=== PATIENT | male | born 1950 | race Caucasian/White ===

== ENCOUNTER → 2017-04-18 08:32 | Outpatient (CLI) | payer MEDICARE, OTHER, SELFPAY ==
--- NOTE | 2017-04-18 08:35 | RAD_ITS ---
STUDY: X-RAY - LEFT SHOULDER REASON FOR EXAM: Male, 67 years old. Status post shoulder replacement. TECHNIQUE: 3 view(s) of the shoulder. COMPARISON: Comparison is made with prior examination dated March 08, 2017. FINDINGS: The patient is status post left reverse shoulder replacement. There is good alignment. Normal acromioclavicular joint. Normal acromion. Normal humeral head and visualized proximal humerus. The soft tissue structures are unremarkable. Once again, there is volume loss and opacity of the left upper lobe. This is unchanged. RAD/Shoulder min 2 Views IMPRESSION: Status post left reverse shoulder replacement. There is good alignment. Stable examination. Stable changes in the left upper lobe density. Electronically Signed: Deniz Escalante MD at 11:21 EST Tel [phone], Service support ,
== END ==
PROVIDERS: Family Provider Family Medicine; PCP Family Medicine; Visit Provider Orthopaedic Surgery
DX: M25.512 Pain in left shoulder (principal)
CPT/HCPCS: 73030

== ENCOUNTER → 2017-09-10 08:45 | Outpatient (CLI) | payer MEDICARE, OTHER, SELFPAY ==
--- NOTE | 2017-09-10 08:47 | RAD_ITS ---
STUDY: X-RAY - LEFT SHOULDER REASON FOR EXAM: Male, 67 years old. Pain. TECHNIQUE: 3 view(s) of the shoulder. COMPARISON: 3 views of the left shoulder April 18, 2017. FINDINGS: Again seen are changes of prior left total shoulder arthroplasty with metal scapular/glenoid and humeral prostheses appear well seated, and in anatomic alignment. There is mild degenerative arthrosis of the acromioclavicular joint with a small amount of superior periarticular degenerative soft tissue calcification. Normal acromion. Normal humeral head and visualized proximal humerus. The soft tissue structures are unremarkable. There is stable collapse in the left lung apex and cephalad hilar retraction. RAD/Shoulder min 2 Views IMPRESSION: Stable x-ray examination of the shoulder, as described. Electronically Signed: Kamran Carbajal MD at 19:07 EDT , Service support ,
== END ==
PROVIDERS: Family Provider Family Medicine; PCP Family Medicine; Visit Provider Orthopaedic Surgery
DX: M25.512 Pain in left shoulder (principal)
CPT/HCPCS: 73030

== ENCOUNTER → 2018-11-27 09:50 | Outpatient (CLI) | payer MEDICARE, OTHER, SELFPAY ==
[2018-08-22 09:16] VITALS: BMI 26.9
[2018-11-27 10:42] LABS: Absolute Lymphocyte Count 0.61 X10^3/uL (0.83-4.51); Absolute Neutrophil Count 3.6 X10^3/uL (2.0-7.7); Basophil# 0.01 X10^3/uL; Basophil% 0.2 % (0-1); Eosinophil# 0.06 X10^3/uL; Eosinophils% 1.2 % (0-5); Hematocrit 43.2 % (40-54); Lymphocyte # 0.61 X10^3/ul (4.0); Lymphocyte % 12.4 % (19-41); Mean Corp Hgb Conc 34.7 g/dL (32-36); Mean Corpuscular Hgb 32.5 pg (27.0-32.0); Mean Corpuscular Volume 93.7 fL (80-94); Mean Platelet Vol. 9.2 fl (6.2-12.0); Monocyte# 0.65 X10^3/uL; Monocyte% 13.3 % (0-10); NRBC Flagged by Analyzer 0 % (0-5); Neutrophil # 3.56 X10^3/uL (2.7-7.7); Neutrophil % 72.7 % (47-70); Platelet Count 233 K/mm3 (150-450); RBC Distribution Width CV 12.3 % (11.6-14.6); RBC Distribution Width SD 42.5 fl (35.1-43.9); Red Blood Count 4.61 M/mm3 (4.6-6.2); White Blood Count 4.9 K/mm3 (4.4-11.0)
[2018-11-27 11:05] LABS: Cholesterol 169 mg/dL (200); High Density Lipoprotein 87 mg/dL; Iron 97 ug/dL (65-175); PSA,Total - Annual Screen 2.49 ng/mL (0.00-4.00); Triglycerides 44 mg/dL; Very Low Density Lipoprotein 9 mg/dL (5-40)
== END ==
PROVIDERS: Family Provider Family Medicine; PCP Family Medicine; Referring Provider Family Medicine; Visit Provider Family Medicine
DX: Z00.00 Encounter for general adult medical examination without abnormal findings (principal); I10 Essential (primary) hypertension; D50.9 Iron deficiency anemia, unspecified; Z12.5 Encounter for screening for malignant neoplasm of prostate
CPT/HCPCS: 36415; 80061; 83540; 84153; 85025; G0103

== ENCOUNTER 2019-04-16 11:09 | Emergency (ER) | payer MEDICARE, OTHER, SELFPAY ==
[2018-08-22 09:16] VITALS: BMI 26.9
[2019-04-16 11:10] VITALS: BP 131/109; PULSE 85; RESP 14; TEMP 36.6; O2SAT 99; BMI 26.4
[2019-04-16 12:20] VITALS: BP 122/80; PULSE 79; RESP 14; O2SAT 96
--- NOTE | 2019-04-16 12:22 | CT_ITS ---
STUDY: CT ABDOMEN AND PELVIS WITH CONTRAST REASON FOR EXAM: Male, 69 years old. LLQ PAIN X2 DAYS LEFT FLANK PAIN X2 WKS-AFTER FALL -- HX-COLON and amp; LUNG CA W/ RADIATION and amp; CHEMO -- SURG-3 FT BOWEL REMOVED RADIATION DOSAGE (If Supplied By Facility): CTDIvol = ( 14.05 ) mGy, DLP = ( 974.51 ) mGycm TECHNIQUE: Transaxial images were obtained from the dome of the diaphragm to the symphysis pubis without oral contrast. IV 100mL Isovue-300 was administered. Sagittal and coronal images were reconstructed. Individualized dose optimization techniques were used for this CT. COMPARISON: Comparison is made with prior examination dated February 16, 2016. FINDINGS: Small left pleural effusion with minimal left basilar atelectasis. Nondisplaced posterior rib fractures most likely of the left ninth and 10th ribs. Also evidence of a nondisplaced fracture of the anterior lateral aspect of the left eighth and ninth ribs. The visualized portions of the heart are within normal limits. Normal liver. Normal gallbladder and extrahepatic biliary system. Normal spleen. Normal pancreas. Normal bilateral adrenal glands. Normal right kidney. Normal left kidney. Normal visualized stomach. Anastomosis seen in the mid jejunal level. Normal colon. The appendix is visualized and appears normal. Small lymph nodes are seen in the mesentery in the right lower quadrant suggestive of mesenteric adenitis. There is scattered atherosclerotic calcification of the abdominal aorta, without a demonstrated aneurysm. Normal inferior vena cava. There is borderline retroperitoneal lymphadenopathy with enlarged nodes no greater than 10mm in the short axis diameter. Normal urinary bladder. There is enlargement of the prostate gland. The prostate measures 5.8 size by 3.7 cm. Central calcifications are seen. There is a small umbilical hernia containing fat. Degenerative changes at the L5-S1 level with spondylosis of the pars interarticularis and minimal anterior listhesis. CT/Abdomen/Pelvis W IV Cont ONLY IMPRESSION: New small left pleural effusion with minimal atelectasis at the left lung base. Left rib fractures. Electronically Signed: Deniz Escalante, at 13:26 EST , Service support ,
--- NOTE | 2019-04-16 12:29 | ED.DCSUM_ITS ---
History of Present Illness Chief Complaint: GI Bleed Narrative: Patient presents for evaluation of right ankle. He tells me that 2 weeks ago he sustained a fall injuring his left lower ribs. He states he had a large area of contusion in his flank. 3 days ago he began to have bright red blood per the rectum. He tells me that he is not really having any stools. Between midnight and 5:00 he had multiple episodes. Last episode of blood was about 3 hours ago. He notes some lower left abdominal pain. He has had an increase in the pain from his ribs that he had had previous improvement from. He denies any fevers. He tells me on his last colonoscopy he had a couple polyps removed. 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 He cannot tell me what his final diagnosis was. From reading his last oncology note last summer patient has a history of metastatic melanoma. Intussusception with small bowel partial resection. Past Medical History - Allergies and Home Meds Allergies/Adverse Reactions: Allergies paclitaxel [From Taxol] Allergy (Verified 08/22/18 09:16) Anaphylaxis Primary Care Physician: Renny Roldan MD [Primary Care Provider] - Surgical History: - - Lung biopsy abdominal surgery for tumor debulking Smoking Status: Never smoker Review of Systems General: Denies: Chills, Fever, Sweats Eyes: Denies: Visual changes - bilaterally, Diplopia ENT: Denies: Rhinorrhea, Sore throat Cardiovascular: Denies: Chest pain, Palpitations Respiratory: Denies: Dyspnea, Cough, Dyspnea on exertion Gastrointestinal: Reports: Abdominal pain, Melena, - - Left lower flank pain and ecchymosis. Denies: Nausea, Vomiting, Diarrhea, Hematochezia Genitourinary: Denies: Dysuria, Hematuria, Frequency Musculoskeletal: Denies: Back pain, Extremity Pain Skin: Denies: Rash, Wounds Neurological: Denies: Headache, Weakness, Numbness Physical Exam Vital Signs/Narrative: Vital Signs Temp Pulse Resp BP Pulse Ox 04/16/19 12:20 79 14 122/80 H 96 04/16/19 11:10 97.8 F 85 14 131/109 H 99 Inital Vital Signs reviewed: Yes General: Well nourished, Well developed, No Acute Distress Head: Normocephalic, Atraumatic Eyes: Perrl, EOMI ENT: Moist mucous membranes, No rhinorrhea Neck: Supple, Nontender Cardiovascular: Regular rate, Regular rhythm, No murmurs Respiratory: No distress, CTA bilaterally, Chest nontender Abdomen: Soft, Nondistended, Normal bowel sounds, Tender - To palpation of the left lower quadrant. No guarding or rebound. There is flank ecchymosis noted. Tender to palpation of the lower ribs. Back: Nontender, Normal Inspection Extremities: Nontender, No edema Skin: Normal color, No rash Neurological: Alert, Oriented x3, Cranial nerves II-XII grossly intact, Normal Strength, Normal Sensation Psychological: Normal affect, Normal Mood Diagnostic/Tx/Re-eval - Medical Decision Making Patient hemoglobin is 11. This is down from [address] does not demonstrate any colitis/diverticulitis. He is got several rib fractures on the left lower side. Lactic acid is normal. While here in the department the patient had a very large bloody movement with clots. He remains hemodynamically stable. My plan was initially to admit him here unfortunately general surgery did not feel comfortable with this plan. Patient was advised of this and this upset him greatly. He requested [facility] have not heard [facility] for some time from them. He then said he would be willing to go to [place] after initially saying that he would not go there. He was accepted to [facility] by Dr. Manriquez. ED Disposition - Plan for ED Patient: Disposition: Acute Care Hospital - Other Diagnosis: GI bleed, Multiple fractures of ribs, left side, initial encounter for closed fracture
[2019-04-16 12:32] LABS: Absolute Lymphocyte Count 0.67 X10^3/uL (0.83-4.51); Absolute Neutrophil Count 6.6 X10^3/uL (2.0-7.7); Basophil# 0.05 X10^3/uL; Basophil% 0.6 % (0-1); Eosinophil# 0.11 X10^3/uL; Eosinophils% 1.4 % (0-5); Hemoglobin 11.1 g/dL (13.0-16.5); Lymphocyte # 0.67 X10^3/ul (4.0); Lymphocyte % 8.3 % (19-41); Mean Corp Hgb Conc 33.6 g/dL (32-36); Mean Corpuscular Hgb 31.8 pg (27.0-32.0); Mean Corpuscular Volume 94.6 fL (80-94); Mean Platelet Vol. 9.4 fl (6.2-12.0); Monocyte# 0.62 X10^3/uL; Monocyte% 7.7 % (0-10); NRBC Flagged by Analyzer 0 % (0-5); Neutrophil # 6.57 X10^3/uL (2.7-7.7); Neutrophil % 81.5 % (47-70); Platelet Count 366 K/mm3 (150-450); RBC Distribution Width CV 12.3 % (11.6-14.6); RBC Distribution Width SD 42.5 fl (35.1-43.9); Red Blood Count 3.49 M/mm3 (4.6-6.2); White Blood Count 8.1 K/mm3 (4.4-11.0)
[2019-04-16] MEDS: 0.9% Normal Saline 1,000 ML 1000 ML IV (12:40)
[2019-04-16 12:43] LABS: ALB/GLOB Ratio 1.1 RATIO (0.9-2.4); AST(SGOT) 17 U/L (15-37); Alanine Aminotransfer ALT/SGPT 25 U/L (12-78); Albumin, Serum 3.3 g/dL (3.4-5.0); Alkaline Phosphatase 147 U/L (50-136); Anion Gap 6 (5-15); BUN 24 mg/dL (7-18); BUN/Creat Ratio 19.8 RATIO (10-20); Calcium,Total 8.8 mg/dL (8.5-10.1); Chloride 105 mmol/L (98-107); Creatinine, Serum 1.21 mg/dL (0.70-1.30); EST Glomerular Filtration Rate 64 mL/min (>60); Est Glom Filt Rate - Afr Amer 77 mL/min (>60); Estimated Creatinine Clearance 66.95 ml/min; Globulin 3.1 g/dL (2.3-3.5); Glucose 149 mg/dL (70-110); Lipase 150 U/L (73-393); Protein, Total 6.4 g/dL (6.4-8.2); Sodium Level 137 mmol/L (136-145)
[2019-04-16 13:00] VITALS: BP 130/66; PULSE 72; RESP 15; O2SAT 97
[2019-04-16 13:09] LABS: Lactic Acid 1.1 mmol/L (0.4-1.9)
[2019-04-16 14:00] VITALS: BP 112/74; RESP 18; O2SAT 97
[2019-04-16] MEDS: 0.9% Normal Saline 1,000 ML 125 ML IV (14:27)
[2019-04-16 14:28] LABS: Bacteria 0 SEEN /hpf (None Seen); Mucous, Urine 0 SEEN /hpf (<or=2+); White Blood Cells 0 SEEN /hpf (0-5)
[2019-04-16 14:40] VITALS: BMI 26.4
[2019-04-16 14:40] LABS: Color, Urine Straw (Yellow); Glucose, Dipstick Normal (Normal); Ketone-Dipstick 15 mg/dl (Negative); Leukocyte Esterase-Dipstick Negative /ul (Negative); Nitrite-Dipstick Negative (Negative); Occult Blood-Urine Negative /ul (Negative); Protein-Dipstick Negative (Negative); Specific Gravity, Urine 1.015 (1.002-1.030); Urine Bilirubin Dipstick Negative (Negative); Urine Clarity Clear (Clear); Urine Urobilinogen Normal (Normal)
[2019-04-16 14:46] LABS: Red Blood Cells-Urine 0-5 SEEN /hpf (0-5); Squamous Epithelial Cells - UA 0-5 SEEN /hpf (0-5)
--- NOTE | 2019-04-16 15:32 | NURSING ---
CALLED [facility], NOT ACCEPTING OUTSIDE GI TRANSFERS CALLED [facility] AND HAVE EVEN OPENED THEIR OVERFLOW. NOT ACCEPTING TRANSFERS.
--- NOTE | 2019-04-16 15:46 | NURSING ---
FAXED CHART TO [facility]. TALKED TO KREWIN CORRAL COODINATOR WILL BE RASHEL X [phone]
--- NOTE | 2019-04-16 16:24 | NURSING ---
PATIENT GOING TO [facility].
[2019-04-16 16:49] VITALS: BP 162/87; PULSE 87; RESP 18; O2SAT 98
== END 2019-04-16 16:50 | disposition short-term general hospital (02) ==
PROVIDERS: Emergency Provider Emergency Medicine; PCP Family Medicine
DX: K92.2 Gastrointestinal hemorrhage, unspecified (principal); S22.42XA Multiple fractures of ribs, left side, initial encounter for closed fracture; W19.XXXA Unspecified fall, initial encounter; Y93.9 Activity, unspecified; Y92.9 Unspecified place or not applicable; Z85.820 Personal history of malignant melanoma of skin
CPT/HCPCS: 74177; 80053; 81001; 83605; 83690; 85025; 96360; 96361; 99284; J7030; Q9967; A4216

== ENCOUNTER 2019-05-05 03:25 | Emergency (ER) | payer MEDICARE, OTHER, SELFPAY ==
[2019-05-05] VITALS (8 sets, daily range): BP systolic 115–119; BP diastolic 63–74; PULSE 96–107; RESP 18–25; TEMP 36.7–37.8; O2SAT 95–97; BMI 24.0
--- NOTE | 2019-05-05 03:57 | CT_ITS ---
We are attempting to reach an attending provider to discuss findings. An addendum with communication details will be sent when the communication is complete. STUDY: CT ABDOMEN AND PELVIS WITH CONTRAST REASON FOR EXAM: Male, 69 years old. Lower abdominal pain and vomiting. Lung cancer and metastatic melanoma. Recent colonic repair 04/30/2019 secondary to ulceration. TECHNIQUE: Transaxial images were obtained from the dome of the diaphragm to the symphysis pubis without oral contrast. Oral and amp; IV Gastrografin and amp; 100mL Isovue-370 was administered. Sagittal and coronal images were reconstructed. Individualized dose optimization techniques were used for this CT. COMPARISON: 04/16/2019 CT abdomen and pelvis. FINDINGS: Partially visualized lower chest: Small simple density left pleural effusion with adjacent atelectasis, similar to prior. No significant change in the partially visible chest. Liver: No concerning lesions. Gallbladder and biliary tree: No visible gallstones. No pericholecystic inflammation. No biliary ductal dilation. Pancreas: No pancreatic lesions or inflammation. Spleen: Normal size, no splenic lesions. Adrenal glands: No concerning masses. Kidneys and ureters: No hydronephrosis or renal stones. No concerning masses. No ureteral dilation. Bowel: Interval right partial colectomy and appendectomy with ileocolic anastomosis right lower quadrant. Diffuse dilation of the small bowel with air-fluid levels, with relative narrowing of the distal ileum near the ileocolic anastomosis. Mild mesenteric edema and a small amount of fluid in the mesentery adjacent to the dilated small bowel loops. Urinary bladder: No stones or wall thickening. Reproductive:Normal size prostate. Vascular: No abdominal aortic aneurysm. Patent mesenteric and portal veins. Retroperitoneal and peritoneal spaces: Trace simple density ascites. Small focus of extraluminal air along the medial inferior aspect of the right lobe of the liver. Osseous: No acute osseous abnormality. Healing left posterior rib fractures again demonstrated. Abdominal and pelvic wall: Expected postoperative changes from fairly recent surgery in the anterior mid abdominal wall. No abscess or hematoma. CT/Abdomen/Pelvis WITH Contrast IMPRESSION: Distal small bowel obstruction in this patient status post interval, recent partial right colectomy with ileocolic anastomosis in the right abdomen. The transition to decompressed bowel is located near to the anastomosis. Given the recent proximity to the surgery, the etiology is most likely edema at the anastomosis. A small focus of extraluminal air along the medial inferior aspect of the right lobe of the liver most likely represents resolving postoperative changes. No definite evidence of anastomosis dehiscence or perforation. Electronically Signed: Joaquin Johnson, at 6:16 EST Tel , Service support ,
--- NOTE | 2019-05-05 03:59 | ED.VIS.GI ---
History of Present Illness Chief Complaint: Abd Pain Informant: Patient - Abdominal Pain/Flank Pain Onset: Weeks - 1.5 Context: - - since my surgery Timing: Continuous Quality: Aching Location: RLQ Current Severity: Severe Maximum Severity: Severe Worsened by: Movement Relieved by: Nothing - Nausea/Vomiting/Emesis GI Symptom: Nausea, Vomiting Quality: Negative for: Blood streaks, Coffee ground, Hematemesis Severity: Mild - Diarrhea/Melena/Hematochezia GI Symptom: Diarrhea. Negative for: Melena, Hematochezia Onset: Weeks - 1.5 Stool Quality: Watery. Negative for: Black, Maroon, JESSICA per rectum Severity: Moderate Episodes: 4 - Per day Associated Symptoms: Negative for: Dysuria, Frequency, Hematuria, Urgency Narrative: Patient states he was having lower GI bleeding and diagnosed with an ulcer where his colon meets his small intestine and he was transferred to [facility] and had a part of his intestine resected as a result of this by Dr. Prescott. This occurred 1.5 weeks ago and he has been having this pain ever since along with diarrhea, and no more blood. He states the pain has become severe now so he presents to the emergency department this morning. He try to follow-up because of this, but his states they had to cancel the appointment because the diarrhea prevented him from making the car ride up to [place]. He denies any fevers, hematemesis. He is having nausea and occasional vomiting but not vomiting up very much. He has been drinking fluids but his oral food intake has been very poor and he had had a 20 pound weight loss he states. - Past Medical History (1) Hypertension Status: Chronic (2) Anemia, chronic disease Status: Chronic (3) History of lung cancer Status: Chronic (4) History of melanoma Status: Chronic (5) Insomnia Status: Chronic Past Medical History - Allergies and Home Meds Allergies/Adverse Reactions: Allergies paclitaxel [From Taxol] Allergy (Verified 05/05/19 03:31) Anaphylaxis Primary Care Physician: eRnny Roldan MD [Primary Care Provider] - Surgical History: - - Lung biopsy abdominal surgery for tumor debulking. Partial colon resection. Lives: Spouse/ Significant Other Smoking Status: Former smoker Review of Systems General: Reports: Malaise. Denies: Chills, Fever, Sweats Eyes: Denies: Visual changes - bilaterally, Diplopia ENT: Denies: Rhinorrhea, Sore throat Cardiovascular: Denies: Chest pain, Palpitations Respiratory: Reports: Cough. Denies: Dyspnea, Sputum, Dyspnea on exertion Gastrointestinal: Reports: Abdominal pain, Nausea, Vomiting, Diarrhea. Denies: Melena, Hematochezia Genitourinary: Denies: Dysuria, Hematuria, Frequency Musculoskeletal: Denies: Neck pain, Back pain, Swelling, Extremity Pain Skin: Denies: Rash, Wounds Neurological: Denies: Headache, Weakness, Numbness Physical Exam Vital Signs/Narrative: Vital Signs Temp Pulse Resp BP 05/05/19 03:39 105 H 25 H 118/63 05/05/19 03:31 98.1 F 107 H 24 H 118/63 05/05/19 03:26 98.1 F 22 H 115/74 Inital Vital Signs reviewed: Yes General: Well nourished, Well developed, Acute Distress - Mild, painful Head: Normocephalic, Atraumatic Eyes: Perrl, EOMI ENT: Moist mucous membranes, No rhinorrhea Neck: Supple, Nontender Cardiovascular: Regular rate, Regular rhythm, No murmurs, Tachycardia Respiratory: No distress, CTA bilaterally, Chest nontender Abdomen: Soft, Nondistended, Tender - Right lower quadrant, Hypoactive bowel sounds. Negative for: Guarding, Rebound tenderness, Pulsatile mass Back: Nontender, Normal Inspection. Negative for: CVA tenderness Extremities: Nontender, No edema Skin: Normal color, No rash, No Trauma Neurological: Alert, Oriented x3, Cranial nerves II-XII grossly intact, Normal Strength, Normal Sensation Psychological: Normal affect, Normal Mood Diagnostic/Tx/Re-eval Impressions Abdomen/Pelvis CT 05/05/19 03:57 IMPRESSION: Distal small bowel obstruction in this patient status post interval, recent partial right colectomy with ileocolic anastomosis in the right abdomen. The transition to decompressed bowel is located near to the anastomosis. Given the recent proximity to the surgery, the etiology is most likely edema at the anastomosis. A small focus of extraluminal air along the medial inferior aspect of the right lobe of the liver most likely represents resolving postoperative changes. No definite evidence of anastomosis dehiscence or perforation. Electronically Signed: Joaquin Johnson, at 6:16 EST Tel , Service support , 05/05/19 03:57 Abdomen/Pelvis WITH Contrast [CT] Stat Laboratory Results 05/05/19 05/05/19 03:35 03:35 WBC 16.1 H RBC 2.85 L Hgb 8.4 L Hct 25.7 L MCV 90.2 MCH 29.5 MCHC 32.7 RDW Std Deviation 49.2 H RDW Coeff of Migel 15.2 H Plt Count 1109 H* MPV 10.0 Immature Gran % (Auto) 1.100 H Neut % (Auto) 85.9 H Lymph % (Auto) 4.8 L [place] % (Auto) 7.5 Eos % (Auto) 0.5 Baso % (Auto) 0.2 Absolute Neuts (auto) 13.8 H Absolute Lymphs (auto) 0.77 L Nucleated RBC % 0.7 Differential Comment SCANNED Diff Path Review May foll Sodium 140 Potassium 3.7 Chloride 108 H Carbon Dioxide 20.0 L Anion Gap 12 BUN 22 H Creatinine 1.00 Estim Creat Clear Calc 81.01 Est GFR (MDRD) Af Amer 96 Est GFR (MDRD) Non-Af 79 BUN/Creatinine Ratio 22.0 H Glucose 92 Calcium 8.3 L Total Bilirubin 0.40 AST 32 ALT 38 Alkaline Phosphatase 177 H Total Protein 6.1 L Albumin 1.6 L Globulin 4.5 H Albumin/Globulin Ratio 0.4 L - Medical Decision Making As per results of contrasted CT above, patient appears to be developing a bowel obstruction at the level of the anastomosis without an anastomotic leak or abscess. Patient's pain is controlled after giving him morphine. He was also given fluids. Plan is for transfer back to [facility], where he just had this surgery. Accepted by ED physician, Dr. Dick. Pt is clinically and hemodynamically stable after analgesics. He did develop a fever of 100.0, source of that is unknown. There is no sign of a perforation on CT. I did denote a small amount of free air, but the radiologist told me this was within normal limits in a patient who just had surgery within 1.5 weeks ago. There is no sign of an abscess. I am leaving the patient n.p.o. without Tylenol being given, on recheck he is 99.9. He is stable for transfer. ED Disposition - Plan for ED Patient: Disposition: [facility] Diagnosis: Small bowel obstruction Referrals: Renny Roldan MD [Primary Care Provider] -
[2019-05-05] MEDS: 0.9% Normal Saline 1,000 ML 1000 ML IV (04:19)
[2019-05-05] MEDS: Ondansetron 4 MG/2 ML Vial IV (04:19)
[2019-05-05] MEDS: Morphine 4 MG/ML Syringe IV ×2 (04:19→07:30)
[2019-05-05 04:20] LABS: Absolute Lymphocyte Count 0.77 X10^3/uL (0.83-4.51); Absolute Neutrophil Count 13.8 X10^3/uL (2.0-7.7); Basophil# 0.04 X10^3/uL; Basophil% 0.2 % (0-1); Eosinophil# 0.08 X10^3/uL; Eosinophils% 0.5 % (0-5); Hematocrit 25.7 % (40-54); Hemoglobin 8.4 g/dL (13.0-16.5); Lymphocyte # 0.77 X10^3/ul (4.0); Lymphocyte % 4.8 % (19-41); Mean Corp Hgb Conc 32.7 g/dL (32-36); Mean Corpuscular Hgb 29.5 pg (27.0-32.0); Mean Corpuscular Volume 90.2 fL (80-94); Monocyte# 1.21 X10^3/uL; Monocyte% 7.5 % (0-10); NRBC Flagged by Analyzer 0.7 % (0-5); Neutrophil # 13.83 X10^3/uL (2.7-7.7); Neutrophil % 85.9 % (47-70); POSITIVE COUNT YES; POSITIVE MORPHOLOGY YES; RBC Distribution Width CV 15.2 % (11.6-14.6); RBC Distribution Width SD 49.2 fl (35.1-43.9); Red Blood Count 2.85 M/mm3 (4.6-6.2); White Blood Count 16.1 K/mm3 (4.4-11.0)
[2019-05-05 04:33] LABS: ALB/GLOB Ratio 0.4 RATIO (0.9-2.4); AST(SGOT) 32 U/L (15-37); Alanine Aminotransfer ALT/SGPT 38 U/L (16-61); Albumin, Serum 1.6 g/dL (3.2-5.0); Alkaline Phosphatase 177 U/L (45-117); Anion Gap 12 (5-15); BUN 22 mg/dL (7-18); Calcium,Total 8.3 mg/dL (8.5-10.1); Chloride 108 mmol/L (98-107); EST Glomerular Filtration Rate 79 mL/min (>60); Est Glom Filt Rate - Afr Amer 96 mL/min (>60); Estimated Creatinine Clearance 81.01 ml/min; Globulin 4.5 g/dL (2.2-4.2); Glucose 92 mg/dL (74-106); Potassium 3.7 mmol/L (3.5-5.1); Protein, Total 6.1 g/dL (6.4-8.2); Sodium Level 140 mmol/L (136-145)
[2019-05-05 05:01] LABS: Differential Indicated SCAN CRITERIA MET; Platelet Count 1109 K/mm3 (150-450)
[2019-05-05 05:03] LABS: Differential Comment SCANNED
[2019-05-05 07:38] LABS: Bacteria 0 SEEN /hpf (None Seen); Mucous, Urine 0 SEEN /hpf (<or=2+); Red Blood Cells-Urine 0 SEEN /hpf (0-5); Squamous Epithelial Cells - UA 0 SEEN /hpf (0-5); White Blood Cells 0 SEEN /hpf (0-5)
[2019-05-05 07:39] LABS: Color, Urine Yellow (Yellow); Glucose, Dipstick Normal (Normal); Ketone-Dipstick 5 mg/dl (Negative); Leukocyte Esterase-Dipstick Negative /ul (Negative); Nitrite-Dipstick Negative (Negative); Occult Blood-Urine Negative /ul (Negative); Protein-Dipstick 30 mg/dl (Negative); Urine Clarity Sl. Cloudy (Clear); Urine Urobilinogen Normal (Normal); Urine pH 6.5 (5.0 - 8.0)
[2019-05-05 07:49] LABS: Urine Bilirubin Dipstick 1 mg/dL (Negative)
[2019-05-05 14:04] LABS: Pathologist Review Reviewed
== END 2019-05-05 07:47 | disposition short-term general hospital (02) ==
PROVIDERS: Emergency Provider Emergency Medicine; PCP Family Medicine
DX: K56.609 Unspecified intestinal obstruction, unspecified as to partial versus complete obstruction (principal); R05 Cough; Z86.2 Personal history of diseases of the blood and blood-forming organs and certain disorders involving the immune mechanism; Z87.19 Personal history of other diseases of the digestive system; Z85.118 Personal history of other malignant neoplasm of bronchus and lung; Z85.820 Personal history of malignant melanoma of skin; Z90.49 Acquired absence of other specified parts of digestive tract; Z87.891 Personal history of nicotine dependence
CPT/HCPCS: 74177; 80053; 81001; 85025; 96361; 96374; 96375; 96376; 99285; J7030; Q9967; A4216; J2405

== ENCOUNTER → 2019-05-27 15:42 | Outpatient (CLI) | payer MEDICARE, OTHER, SELFPAY ==
[2019-05-05 03:26] VITALS: BMI 24.0
[2019-05-27 16:33] LABS: Hematocrit 29.1 % (40-54); Hemoglobin 9.3 g/dL (13.0-16.5); Mean Corpuscular Hgb 28.1 pg (27.0-32.0); Mean Corpuscular Volume 87.9 fL (80-94); Platelet Count 527 K/mm3 (150-450); RBC Distribution Width CV 16.2 % (11.6-14.6); RBC Distribution Width SD 51.8 fl (35.1-43.9); Red Blood Count 3.31 M/mm3 (4.6-6.2)
[2019-05-27 16:44] LABS: Anion Gap 9 (5-15); BUN 13 mg/dL (7-18); BUN/Creat Ratio 17.7 RATIO (10-20); Calcium,Total 7.3 mg/dL (8.5-10.1); Chloride 109 mmol/L (98-107); Creatinine, Serum 0.73 mg/dL (0.70-1.30); EST Glomerular Filtration Rate 113 mL/min (>60); Est Glom Filt Rate - Afr Amer 137 mL/min (>60); Glucose 89 mg/dL (74-106); Potassium 3.9 mmol/L (3.5-5.1); Sodium Level 139 mmol/L (136-145)
== END ==
PROVIDERS: PCP Family Medicine; Referring Provider Surgery; Visit Provider Surgery
DX: E46 Unspecified protein-calorie malnutrition (principal); N17.9 Acute kidney failure, unspecified; D50.9 Iron deficiency anemia, unspecified
CPT/HCPCS: 80048; 85027

== ENCOUNTER 2019-06-06 09:30 | Emergency (ER) | payer MEDICARE, OTHER, SELFPAY ==
[2019-05-05 03:26] VITALS: BMI 24.0
[2019-06-06 09:31] VITALS: BP 117/84; PULSE 68; RESP 12; TEMP 36; O2SAT 94; BMI 18.4
--- NOTE | 2019-06-06 10:12 | EKG12_ITS ---
Test Reason : WEAKNESS Blood Pressure : / mmHG Vent. Rate : 095 BPM Atrial Rate : 093 BPM P-R Int : 000 ms QRS Dur : 090 ms QT Int : 362 ms P-R-T Axes : 000 007 084 degrees QTc Int : 454 ms Normal sinus rhythm Septal infarct , age undetermined Abnormal ECG Confirmed by JONATHAN AVILES ([id number]), scientific publications editor RHODA OVALLE ([id number]) on 06/09/2019 1:07:23 PM Referred By: CHRISTIE Confirmed By:JONATHAN AVILES
--- NOTE | 2019-06-06 10:16 | ED.DCSUM_ITS ---
History of Present Illness Chief Complaint: Weakness Narrative: This patient is a 69-year-old male who presents with a chief complaint of I am starving to . Unfortunately he is a very poor informant. He basically tells me that he is here because he wants to get a PICC line established and started on TPN at home. He reports poor appetite for 2 to 4 weeks with decreased oral intake. No vomiting. He has also had severe daily diarrhea for several weeks. He reports a 50 pound weight loss over the last month. He states that he has been admitted up in [place] several times. He states this was because he had a cyst near his appendix and he had a bowel resection. He states that he has then been admitted several times due to not feeling well and reports that he had testing which was normal and was ultimately discharged home. However on review of records it appears he was seen earlier this month for a GI bleed with clots. He was transferred due to the severity of bleeding. He then had another visit and on CT imaging at that time and had an interval ileocolic resection and had evidence of a bowel obstruction and was again transferred to [place]. Patient denies fever cough congestion rhinorrhea sore throat chest pain or difficulty breathing. No urinary symptoms. In regards to abdominal pain he states that he has some rumbling because he has not been eating but does not really have any focal pain. Past Medical History - Allergies and Home Meds Allergies/Adverse Reactions: Allergies paclitaxel [From Taxol] Allergy (Verified 06/06/19 09:31) Anaphylaxis Primary Care Physician: Renny Roldan MD [Primary Care Provider] - Past Medical History: - - Melanoma, lung cancer, bowel resection Surgical History: - - Lung biopsy abdominal surgery for tumor debulking. Partial colon resection. Smoking Status: Former smoker Review of Systems All systems negative except as indicated General: Reports: - - Patient complains of generalized malaise and weakness, anorexia. Denies: Fever Cardiovascular: Denies: Chest pain Respiratory: Denies: Dyspnea Gastrointestinal: Reports: Diarrhea. Denies: Abdominal pain, Nausea, Vomiting Genitourinary: Denies: Dysuria Skin: Denies: Rash Neurological: Denies: Headache Physical Exam Vital Signs/Narrative: Vital Signs Temp Pulse Resp BP Pulse Ox 06/06/19 09:31 96.8 F L 68 12 117/84 H 94 Inital Vital Signs reviewed: Yes General: Well nourished Head: Normocephalic Eyes: EOMI ENT: Moist mucous membranes Neck: Supple Cardiovascular: Regular rate, Regular rhythm Respiratory: No distress, CTA bilaterally Abdomen: Soft, - - Abdomen is nondistended with normal bowel sounds however he does have some lower abdominal tenderness without guarding without rebound Skin: Normal color Neurological: Alert Diagnostic/Tx/Re-eval Impressions Abdomen/Pelvis CT 06/06/19 11:13 IMPRESSION: Inflammatory changes at the level of the ileocolic anastomosis and distal ileum as described. Diffuse fatty alteration of the liver. Electronically Signed: Deniz Duboncorazonanirudh, at 13:29 EDT , Service support , 06/06/19 11:13 Abdomen/Pelvis WITH Contrast [CT] Stat 06/06/19 11:10 Stool C. difficile DNA Amplification - Final Laboratory Results 06/06/19 06/06/19 10:45 10:45 WBC 15.1 H RBC 4.05 L Hgb 11.4 L Hct 35.9 L MCV 88.6 MCH 28.1 MCHC 31.8 L RDW Std Deviation 57.4 H RDW Coeff of Migel 18.6 H Plt Count 451 H MPV 8.1 Immature Gran % (Auto) 0.600 Neut % (Auto) 85.0 H Lymph % (Auto) 6.9 L [place] % (Auto) 7.1 Eos % (Auto) 0.3 Baso % (Auto) 0.1 Absolute Neuts (auto) 12.8 H Absolute Lymphs (auto) 1.04 Nucleated RBC % 0 Sodium 145 Potassium 4.0 Chloride 114 H Carbon Dioxide 21.0 Anion Gap 10 BUN 20 H Creatinine 1.12 Estim Creat Clear Calc 57.49 Est GFR (MDRD) Af Amer 84 Est GFR (MDRD) Non-Af 69 BUN/Creatinine Ratio 17.9 Glucose 108 H Calcium 8.1 L Total Bilirubin 0.30 AST 47 H ALT 62 H Alkaline Phosphatase 221 H Total Protein 4.7 L Albumin 1.4 L Globulin 3.3 Albumin/Globulin Ratio 0.4 L Lipase 45 L - Medical Decision Making Patient was treated with IV fluids. Labs returned notable for a white blood cell count of 15,000 so I did obtain imaging. This shows some inflammatory changes with mural thickening at the ileocolic anastomosis but no evidence of obstruction. C. difficile was negative. Patient was able to tolerate the oral contrast without any nausea or vomiting and did not receive antiemetics here. Bacterial pathogen stool panel is pending. I spoke to the patient's surgeon who notes that this is been an ongoing issue and he has been evaluated and worked up for it multiple times with negative panels and negative C. difficile. At this point the patient does not appear clinically significantly dehydrated. His potassium is normal. His creatinine is only 1.1. He has a normal heart rate. He does not have evidence of starvation requiring TPN as he requested. I explained this all to the patient. He was advised that as his C. difficile is negative he is fine to take Imodium for diarrhea. I also recommended antiemetics. I explained that although he has decreased appetite he really just needs to make himself eat. He is agreeable to this plan, all questions answered at bedside, patient discharged. ED Disposition - Plan for ED Patient: Disposition: Home or Assisted Living Diagnosis: Diarrhea, Mild dehydration, Poor appetite Instructions: Treating Diarrhea Prescriptions: Ondansetron [Zofran Odt] 4 mg PO Q8H PRN PRN #10 tab PRN Reason: Nausea Prescription Printed Referrals: Renny Roldan MD [Primary Care Provider] - Constantine Prescott [NON-STAFF] -
[2019-06-06] MEDS: 0.9% Normal Saline 1,000 ML 999 ML IV (10:45)
[2019-06-06 10:51] LABS: Absolute Lymphocyte Count 1.04 X10^3/uL (0.83-4.51); Absolute Neutrophil Count 12.8 X10^3/uL (2.0-7.7); Basophil# 0.02 X10^3/uL; Basophil% 0.1 % (0-1); Eosinophil# 0.05 X10^3/uL; Eosinophils% 0.3 % (0-5); Hematocrit 35.9 % (40-54); Hemoglobin 11.4 g/dL (13.0-16.5); Lymphocyte # 1.04 X10^3/ul (4.0); Lymphocyte % 6.9 % (19-41); Mean Corp Hgb Conc 31.8 g/dL (32-36); Mean Corpuscular Hgb 28.1 pg (27.0-32.0); Mean Corpuscular Volume 88.6 fL (80-94); Mean Platelet Vol. 8.1 fl (6.2-12.0); Monocyte# 1.07 X10^3/uL; Monocyte% 7.1 % (0-10); NRBC Flagged by Analyzer 0 % (0-5); Neutrophil # 12.78 X10^3/uL (2.7-7.7); Platelet Count 451 K/mm3 (150-450); RBC Distribution Width CV 18.6 % (11.6-14.6); RBC Distribution Width SD 57.4 fl (35.1-43.9); Red Blood Count 4.05 M/mm3 (4.6-6.2); White Blood Count 15.1 K/mm3 (4.4-11.0)
[2019-06-06 11:00] VITALS: BP 120/82; PULSE 70; RESP 14; O2SAT 98
--- NOTE | 2019-06-06 11:13 | CT_ITS ---
STUDY: CT ABDOMEN AND PELVIS WITH CONTRAST REASON FOR EXAM: Male, 69 years old. Diarrhea, wt LOSS HX-LUNG CA RADIATION DOSAGE (If Supplied By Facility): CTDIvol = ( 10.46 ) mGy, DLP = ( 578.04 ) mGycm TECHNIQUE: Transaxial images were obtained from the dome of the diaphragm to the symphysis pubis with oral contrast. Oral and amp; IV Gastrografin and amp; 100mL Isovue-300 was administered. Sagittal and coronal images were reconstructed. Individualized dose optimization techniques were used for this CT. COMPARISON: Comparison is made with prior study dated May 05, 2019. FINDINGS: Small residual left pleural effusion although this has decreased in size as compared to prior study. The visualized portions of the heart are within normal limits. There is decreased attenuation of the liver consistent with steatosis. Normal gallbladder and extrahepatic biliary system. Normal spleen. Normal pancreas. Normal bilateral adrenal glands. Normal right kidney. Punctate calcification in the upper pole calyx of the left kidney. Normal visualized stomach. Normal small intestine. There is evidence of prior right hemicolectomy with the right ileal conduit anastomosis. There is evidence of mural thickening and inflammatory changes in the distal ileum at the level of the ileocolic anastomosis. This extends into the right upper quadrant. Normal abdominal aorta. Normal inferior vena cava. There is borderline retroperitoneal lymphadenopathy with enlarged nodes no greater than 10mm in the short axis diameter. Normal urinary bladder. There are prostatic calcifications. Normal abdominal wall. There are degenerative changes of the visualized lumbar spine. CT/Abdomen/Pelvis WITH Contrast IMPRESSION: Inflammatory changes at the level of the ileocolic anastomosis and distal ileum as described. Diffuse fatty alteration of the liver. Electronically Signed: Deniz Escalante, at 13:29 EDT , Service support ,
[2019-06-06 11:21] LABS: ALB/GLOB Ratio 0.4 RATIO (0.9-2.4); AST(SGOT) 47 U/L (15-37); Alanine Aminotransfer ALT/SGPT 62 U/L (16-61); Albumin, Serum 1.4 g/dL (3.2-5.0); Alkaline Phosphatase 221 U/L (45-117); Anion Gap 10 (5-15); BUN 20 mg/dL (7-18); BUN/Creat Ratio 17.9 RATIO (10-20); Calcium,Total 8.1 mg/dL (8.5-10.1); Chloride 114 mmol/L (98-107); Creatinine, Serum 1.12 mg/dL (0.70-1.30); EST Glomerular Filtration Rate 69 mL/min (>60); Est Glom Filt Rate - Afr Amer 84 mL/min (>60); Estimated Creatinine Clearance 57.49 ml/min; Globulin 3.3 g/dL (2.2-4.2); Glucose 108 mg/dL (74-106); Lipase 45 U/L (73-393); Protein, Total 4.7 g/dL (6.4-8.2); Sodium Level 145 mmol/L (136-145)
[2019-06-06 13:00] VITALS: BP 118/74; PULSE 68; RESP 16; O2SAT 97
== END 2019-06-06 14:40 | disposition home or self-care (01) ==
PROVIDERS: Emergency Provider Emergency Medicine; PCP Family Medicine
DX: R19.7 Diarrhea, unspecified (principal); E86.0 Dehydration; R63.8 Other symptoms and signs concerning food and fluid intake; Z87.19 Personal history of other diseases of the digestive system; Z85.118 Personal history of other malignant neoplasm of bronchus and lung; Z85.820 Personal history of malignant melanoma of skin; Z90.49 Acquired absence of other specified parts of digestive tract; Z87.891 Personal history of nicotine dependence
CPT/HCPCS: 74177; 80053; 83690; 85025; 87493; 87506; 93005; 96360; 96361; 99284; J7030; Q9967; A4216

== ENCOUNTER → 2019-07-07 16:52 | Outpatient (CLI) | payer MEDICARE, OTHER, SELFPAY ==
[2019-07-07 18:30] LABS: Absolute Lymphocyte Count 0.77 X10^3/uL (0.83-4.51); Absolute Neutrophil Count 4.2 X10^3/uL (2.0-7.7); Basophil# 0.04 X10^3/uL; Basophil% 0.7 % (0-1); Eosinophil# 0.05 X10^3/uL; Eosinophils% 0.9 % (0-5); Hematocrit 25.7 % (40-54); Hemoglobin 7.8 g/dL (13.0-16.5); Lymphocyte # 0.77 X10^3/ul (4.0); Lymphocyte % 13.7 % (19-41); Mean Corp Hgb Conc 30.4 g/dL (32-36); Mean Corpuscular Hgb 29.2 pg (27.0-32.0); Mean Corpuscular Volume 96.3 fL (80-94); Mean Platelet Vol. 10.6 fl (6.2-12.0); Monocyte# 0.56 X10^3/uL; NRBC Flagged by Analyzer 0 % (0-5); Neutrophil # 4.16 X10^3/uL (2.7-7.7); Neutrophil % 74.2 % (47-70); POSITIVE MORPHOLOGY YES; Platelet Count 345 K/mm3 (150-450); RBC Distribution Width CV 22.7 % (11.6-14.6); RBC Distribution Width SD 78.9 fl (35.1-43.9); Red Blood Count 2.67 M/mm3 (4.6-6.2); White Blood Count 5.6 K/mm3 (4.4-11.0)
[2019-07-07 18:32] LABS: Differential Indicated SCAN CRITERIA MET
[2019-07-07 18:42] LABS: ALB/GLOB Ratio 0.4 RATIO (0.9-2.4); AST(SGOT) 84 U/L (15-37); Alanine Aminotransfer ALT/SGPT 98 U/L (16-61); Albumin, Serum 1.4 g/dL (3.2-5.0); Alkaline Phosphatase 204 U/L (45-117); Anion Gap 7 (5-15); BUN 13 mg/dL (7-18); BUN/Creat Ratio 22.9 RATIO (10-20); Chloride 108 mmol/L (98-107); Creatinine, Serum 0.57 mg/dL (0.70-1.30); EST Glomerular Filtration Rate 152 mL/min (>60); Est Glom Filt Rate - Afr Amer 184 mL/min (>60); Globulin 3.4 g/dL (2.2-4.2); Glucose 71 mg/dL (74-106); Magnesium 1.7 mg/dL (1.6-2.6); Phosphorus 2.8 mg/dL (2.5-4.9); Prealbumin 16.8 mg/dL (20.0-40.0); Protein, Total 4.8 g/dL (6.4-8.2); Sodium Level 140 mmol/L (136-145); Triglycerides 106 mg/dL
[2019-07-07 19:34] LABS: Anisocytosis 4+; Platelet Estimate ADEQUATE (ADEQ); Polychromasia RARE
[2019-07-07 19:35] LABS: Differential Comment SCANNED; Schistocytes RARE
== END ==
PROVIDERS: PCP Family Medicine
DX: K63.9 Disease of intestine, unspecified (principal); Z68.1 Body mass index [BMI] 19.9 or less, adult; E56.9 Vitamin deficiency, unspecified
CPT/HCPCS: 80053; 83735; 84100; 84134; 84478; 85025

== ENCOUNTER → 2019-07-10 07:56 | Outpatient (CLI) | payer MEDICARE, OTHER, SELFPAY | PROVIDERS: PCP Family Medicine; Referring Provider Family Medicine; Visit Provider Family Medicine | DX: D64.9 Anemia, unspecified (principal) | CPT/HCPCS: 36592; 86850; 86900; 86901; 86920; 86922; A4216 ==

== ENCOUNTER → 2019-07-11 08:23 | Outpatient (CLI) | payer MEDICARE, OTHER, SELFPAY ==
[2019-07-10 16:18] LABS: Xtra Tube EP Lab EXTRA TUBE
[2019-07-11 08:38] VITALS: BP 118/80; PULSE 103; RESP 18; TEMP 36.6; O2SAT 98; BMI 21.1
[2019-07-11 09:16] VITALS: BP 108/65; PULSE 84; RESP 18; TEMP 36.6
[2019-07-11 10:16] VITALS: BP 119/76; PULSE 79; RESP 18; TEMP 36.5; O2SAT 99
[2019-07-11 11:15] VITALS: BP 115/77; PULSE 81; RESP 18; TEMP 36.7; O2SAT 100
[2019-07-11 11:45] VITALS: BP 110/73; PULSE 88; TEMP 36.8
[2019-07-11 13:44] VITALS: BP 111/77; PULSE 90; RESP 16; TEMP 36.9; O2SAT 100
== END ==
PROVIDERS: PCP Family Medicine; Referring Provider Family Medicine; Visit Provider Family Medicine
DX: D64.9 Anemia, unspecified (principal)
CPT/HCPCS: 36430; 86850; 86900; 86901; 86920; 86922; J7040; P9016

== ENCOUNTER 2019-08-05 12:06 | Outpatient (RCR) | payer MEDICARE, OTHER, SELFPAY ==
[2019-07-11 08:38] VITALS: BMI 21.1
[2019-07-14 16:40] LABS: Absolute Lymphocyte Count 0.88 X10^3/uL (0.83-4.51); Absolute Neutrophil Count 3.4 X10^3/uL (2.0-7.7); Basophil# 0.03 X10^3/uL; Basophil% 0.6 % (0-1); Eosinophil# 0.05 X10^3/uL; Hematocrit 32.9 % (40-54); Hemoglobin 10.5 g/dL (13.0-16.5); Lymphocyte # 0.88 X10^3/ul (4.0); Lymphocyte % 16.8 % (19-41); Mean Corp Hgb Conc 31.9 g/dL (32-36); Mean Corpuscular Hgb 30.9 pg (27.0-32.0); Mean Corpuscular Volume 96.8 fL (80-94); Mean Platelet Vol. 10.1 fl (6.2-12.0); Monocyte# 0.87 X10^3/uL; Monocyte% 16.6 % (0-10); NRBC Flagged by Analyzer 0 % (0-5); Neutrophil # 3.39 X10^3/uL (2.7-7.7); Neutrophil % 64.4 % (47-70); POSITIVE MORPHOLOGY YES; Platelet Count 470 K/mm3 (150-450); RBC Distribution Width CV 21.4 % (11.6-14.6); RBC Distribution Width SD 73.7 fl (35.1-43.9); White Blood Count 5.3 K/mm3 (4.4-11.0)
[2019-07-14 16:41] LABS: Differential Indicated SCAN CRITERIA MET
[2019-07-14 17:10] LABS: ALB/GLOB Ratio 0.6 RATIO (0.9-2.4); AST(SGOT) 27 U/L (15-37); Alanine Aminotransfer ALT/SGPT 54 U/L (16-61); Alkaline Phosphatase 206 U/L (45-117); Anion Gap 7 (5-15); BUN 19 mg/dL (7-18); BUN/Creat Ratio 29.9 RATIO (10-20); Calcium,Total 8.3 mg/dL (8.5-10.1); Chloride 111 mmol/L (98-107); Creatinine, Serum 0.64 mg/dL (0.70-1.30); EST Glomerular Filtration Rate 133 mL/min (>60); Est Glom Filt Rate - Afr Amer 161 mL/min (>60); Globulin 3.6 g/dL (2.2-4.2); Glucose 75 mg/dL (74-106); Magnesium 1.8 mg/dL (1.6-2.6); Phosphorus 3.2 mg/dL (2.5-4.9); Potassium 3.9 mmol/L (3.5-5.1); Prealbumin 19.7 mg/dL (20.0-40.0); Protein, Total 5.6 g/dL (6.4-8.2); Sodium Level 139 mmol/L (136-145); Triglycerides 101 mg/dL
[2019-07-21 16:21] LABS: Absolute Lymphocyte Count 1.04 X10^3/uL (0.83-4.51); Basophil# 0.04 X10^3/uL; Basophil% 0.6 % (0-1); Eosinophil# 0.07 X10^3/uL; Hematocrit 30.8 % (40-54); Hemoglobin 9.7 g/dL (13.0-16.5); Lymphocyte # 1.04 X10^3/ul (4.0); Lymphocyte % 14.6 % (19-41); Mean Corp Hgb Conc 31.5 g/dL (32-36); Mean Corpuscular Hgb 30.1 pg (27.0-32.0); Mean Corpuscular Volume 95.7 fL (80-94); Mean Platelet Vol. 10.4 fl (6.2-12.0); Monocyte# 0.89 X10^3/uL; Monocyte% 12.5 % (0-10); NRBC Flagged by Analyzer 0 % (0-5); Neutrophil # 5.02 X10^3/uL (2.7-7.7); Neutrophil % 70.7 % (47-70); POSITIVE MORPHOLOGY YES; Platelet Count 390 K/mm3 (150-450); RBC Distribution Width CV 19.2 % (11.6-14.6); RBC Distribution Width SD 67.7 fl (35.1-43.9); Red Blood Count 3.22 M/mm3 (4.6-6.2); White Blood Count 7.1 K/mm3 (4.4-11.0)
[2019-07-21 16:35] LABS: Differential Indicated SCAN CRITERIA MET
[2019-07-21 17:04] LABS: ALB/GLOB Ratio 0.6 RATIO (0.9-2.4); AST(SGOT) 20 U/L (15-37); Alanine Aminotransfer ALT/SGPT 38 U/L (16-61); Albumin, Serum 2.2 g/dL (3.2-5.0); Alkaline Phosphatase 188 U/L (45-117); Anion Gap 9 (5-15); BUN 19 mg/dL (7-18); BUN/Creat Ratio 31.8 RATIO (10-20); Calcium,Total 8.3 mg/dL (8.5-10.1); Chloride 110 mmol/L (98-107); EST Glomerular Filtration Rate 144 mL/min (>60); Est Glom Filt Rate - Afr Amer 174 mL/min (>60); Globulin 3.4 g/dL (2.2-4.2); Glucose 72 mg/dL (74-106); Magnesium 1.8 mg/dL (1.6-2.6); Potassium 3.8 mmol/L (3.5-5.1); Prealbumin 19.8 mg/dL (20.0-40.0); Protein, Total 5.6 g/dL (6.4-8.2); Sodium Level 140 mmol/L (136-145); Triglycerides 98 mg/dL
[2019-07-21 18:50] LABS: Platelet Estimate ADEQUATE (ADEQ)
[2019-07-21 18:51] LABS: Anisocytosis 2+; Red Cell Morphology N CHROM NORMAL (NORM C&C)
[2019-07-28 15:46] LABS: Absolute Lymphocyte Count 0.91 X10^3/uL (0.83-4.51); Absolute Neutrophil Count 6.3 X10^3/uL (2.0-7.7); Basophil# 0.02 X10^3/uL; Basophil% 0.2 % (0-1); Eosinophil# 0.12 X10^3/uL; Eosinophils% 1.4 % (0-5); Hematocrit 32.3 % (40-54); Lymphocyte # 0.91 X10^3/ul (4.0); Lymphocyte % 10.9 % (19-41); Mean Corpuscular Hgb 29.9 pg (27.0-32.0); Mean Corpuscular Volume 96.4 fL (80-94); Mean Platelet Vol. 10.4 fl (6.2-12.0); Monocyte# 0.97 X10^3/uL; Monocyte% 11.6 % (0-10); NRBC Flagged by Analyzer 0 % (0-5); Neutrophil # 6.32 X10^3/uL (2.7-7.7); Neutrophil % 75.4 % (47-70); Platelet Count 344 K/mm3 (150-450); RBC Distribution Width CV 17.9 % (11.6-14.6); Red Blood Count 3.35 M/mm3 (4.6-6.2); White Blood Count 8.4 K/mm3 (4.4-11.0)
[2019-07-28 16:02] LABS: ALB/GLOB Ratio 0.7 RATIO (0.9-2.4); AST(SGOT) 25 U/L (15-37); Alanine Aminotransfer ALT/SGPT 41 U/L (16-61); Albumin, Serum 2.6 g/dL (3.2-5.0); Alkaline Phosphatase 179 U/L (45-117); Anion Gap 9 (5-15); BUN 16 mg/dL (7-18); BUN/Creat Ratio 24.3 RATIO (10-20); Calcium,Total 8.3 mg/dL (8.5-10.1); Chloride 110 mmol/L (98-107); Creatinine, Serum 0.66 mg/dL (0.70-1.30); EST Glomerular Filtration Rate 128 mL/min (>60); Est Glom Filt Rate - Afr Amer 155 mL/min (>60); Globulin 3.5 g/dL (2.2-4.2); Glucose 78 mg/dL (74-106); Magnesium 1.7 mg/dL (1.6-2.6); Phosphorus 2.6 mg/dL (2.5-4.9); Potassium 3.7 mmol/L (3.5-5.1); Protein, Total 6.1 g/dL (6.4-8.2); Sodium Level 141 mmol/L (136-145); Triglycerides 105 mg/dL
[2019-08-05 13:17] LABS: Absolute Neutrophil Count 4.4 X10^3/uL (2.0-7.7); Basophil# 0.03 X10^3/uL; Basophil% 0.5 % (0-1); Eosinophils% 1.7 % (0-5); Hematocrit 34.3 % (40-54); Hemoglobin 10.7 g/dL (13.0-16.5); Lymphocyte % 11.8 % (19-41); Mean Corp Hgb Conc 31.2 g/dL (32-36); Mean Corpuscular Hgb 30.7 pg (27.0-32.0); Mean Corpuscular Volume 98.3 fL (80-94); Mean Platelet Vol. 9.9 fl (6.2-12.0); Monocyte% 11.8 % (0-10); NRBC Flagged by Analyzer 0 % (0-5); Neutrophil # 4.37 X10^3/uL (2.7-7.7); Neutrophil % 73.7 % (47-70); POSITIVE MORPHOLOGY YES; Platelet Count 312 K/mm3 (150-450); RBC Distribution Width CV 18.5 % (11.6-14.6); RBC Distribution Width SD 67.1 fl (35.1-43.9); Red Blood Count 3.49 M/mm3 (4.6-6.2); White Blood Count 5.9 K/mm3 (4.4-11.0)
[2019-08-05 13:27] LABS: ALB/GLOB Ratio 0.8 RATIO (0.9-2.4); AST(SGOT) 36 U/L (15-37); Alanine Aminotransfer ALT/SGPT 46 U/L (16-61); Albumin, Serum 2.8 g/dL (3.2-5.0); Alkaline Phosphatase 170 U/L (45-117); Anion Gap 11 (5-15); BUN 11 mg/dL (7-18); BUN/Creat Ratio 15.2 RATIO (10-20); Calcium,Total 8.5 mg/dL (8.5-10.1); Chloride 113 mmol/L (98-107); Creatinine, Serum 0.72 mg/dL (0.70-1.30); EST Glomerular Filtration Rate 115 mL/min (>60); Est Glom Filt Rate - Afr Amer 139 mL/min (>60); Globulin 3.4 g/dL (2.2-4.2); Glucose 76 mg/dL (74-106); Magnesium 1.7 mg/dL (1.6-2.6); Phosphorus 3.5 mg/dL (2.5-4.9); Prealbumin 25.6 mg/dL (20.0-40.0); Protein, Total 6.2 g/dL (6.4-8.2); Sodium Level 144 mmol/L (136-145); Triglycerides 63 mg/dL
[2019-08-05 13:51] LABS: Differential Indicated SCAN CRITERIA MET
[2019-08-05 15:33] LABS: Anisocytosis 1+; Platelet Estimate ADEQUATE (ADEQ); Red Cell Morphology N CHROM NORMAL (NORM C&C)
== END 2019-08-05 18:00 | disposition home or self-care (01) ==
LOC: HHLAB 12:06
PROVIDERS: PCP Family Medicine
DX: K91.2 Postsurgical malabsorption, not elsewhere classified (principal); K55.059 Acute (reversible) ischemia of intestine, part and extent unspecified
CPT/HCPCS: 80053; 83735; 84100; 84134; 84478; 85025

== ENCOUNTER 2019-08-12 17:57 | Outpatient (RCR) | payer MEDICARE, OTHER, SELFPAY ==
[2019-07-11 08:38] VITALS: BMI 21.1
[2019-08-12 18:34] LABS: Absolute Lymphocyte Count 1.31 X10^3/uL (0.83-4.51); Absolute Neutrophil Count 5.1 X10^3/uL (2.0-7.7); Basophil# 0.03 X10^3/uL; Basophil% 0.4 % (0-1); Eosinophil# 0.22 X10^3/uL; Eosinophils% 2.9 % (0-5); Hematocrit 33.4 % (40-54); Hemoglobin 10.7 g/dL (13.0-16.5); Lymphocyte # 1.31 X10^3/ul (4.0); Lymphocyte % 17.2 % (19-41); Mean Corpuscular Hgb 30.6 pg (27.0-32.0); Mean Corpuscular Volume 95.4 fL (80-94); Mean Platelet Vol. 9.3 fl (6.2-12.0); Monocyte# 0.99 X10^3/uL; NRBC Flagged by Analyzer 0 % (0-5); Neutrophil # 5.05 X10^3/uL (2.7-7.7); Neutrophil % 66.2 % (47-70); Platelet Count 319 K/mm3 (150-450); RBC Distribution Width CV 17.7 % (11.6-14.6); RBC Distribution Width SD 62.4 fl (35.1-43.9); White Blood Count 7.6 K/mm3 (4.4-11.0)
[2019-08-12 18:39] LABS: ALB/GLOB Ratio 0.9 RATIO (0.9-2.4); AST(SGOT) 25 U/L (15-37); Alanine Aminotransfer ALT/SGPT 35 U/L (16-61); Albumin, Serum 3.2 g/dL (3.2-5.0); Alkaline Phosphatase 187 U/L (45-117); Anion Gap 9 (5-15); BUN 9 mg/dL (7-18); BUN/Creat Ratio 12.6 RATIO (10-20); Calcium,Total 8.3 mg/dL (8.5-10.1); Chloride 103 mmol/L (98-107); Creatinine, Serum 0.71 mg/dL (0.70-1.30); EST Glomerular Filtration Rate 117 mL/min (>60); Est Glom Filt Rate - Afr Amer 141 mL/min (>60); Globulin 3.7 g/dL (2.2-4.2); Glucose 78 mg/dL (74-106); Magnesium 2.1 mg/dL (1.6-2.6); Potassium 3.3 mmol/L (3.5-5.1); Prealbumin 28.2 mg/dL (20.0-40.0); Protein, Total 6.9 g/dL (6.4-8.2); Sodium Level 136 mmol/L (136-145); Triglycerides 94 mg/dL
== END 2019-08-12 18:00 | disposition home or self-care (01) ==
LOC: HHLAB 17:57
PROVIDERS: PCP Family Medicine
DX: K91.2 Postsurgical malabsorption, not elsewhere classified (principal); K55.059 Acute (reversible) ischemia of intestine, part and extent unspecified
CPT/HCPCS: 80053; 83735; 84100; 84134; 84478; 85025

== ENCOUNTER 2021-04-07 08:01 | Outpatient (CLI) | payer OTHER, SELFPAY ==
--- NOTE | 2021-04-07 08:05 | CT_ITS ---
STUDY: CT CHEST WITH T WITHOUT CONTRAST REASON FOR EXAM: Male, 71 years old. HX OF LUNG,COLON CA RADIATION DOSAGE (If Supplied By Facility): CTDIvol = ( 13.09 ) mGy, DLP = ( 2293.19 ) mGycm TECHNIQUE: Transaxial imaging was performed pre-and post contrast administration of ISOVUE 300-100ml Oral contrast. Multiplanar coronal and sagittal images were reformatted. Individualized dose optimization techniques were used for this CT. COMPARISON: Comparison is made with prior study dated 02/15/2015. FINDINGS: There is a 3.8 cm x 4 cm heterogeneous mass in the peripheral aspect of the left upper lobe with a peripheral calcification. This has decreased in size as compared to prior study. Persistent loculated pleural fluid in the left upper lobe. There is volume loss in the left hemithorax. There is evidence of bronchiectasis and postradiation pneumonitis in the anterior aspect of the left upper lobe. Mild scarring at the left lung base. There are calcifications of the coronary arteries. There are multiple small lymph nodes within the mediastinum, which are normal in size and morphology most compatible with reactive lymph hyperplasia. Normal hilar regions. Normal enhanced and unenhanced pulmonary arteries. Normal aorta arch and descending thoracic aorta. There are multi-level degenerative changes of the thoracic spine. Diffuse fatty infiltration. CT/Chest W/WO Contrast IMPRESSION: Interval decrease in size of the mass in the left upper lobe with the persistent loculated left pleural effusion and bronchiectasis and volume loss in the left upper lobe. Electronically Signed: Deniz Escalante MD at 12:42 EST ,
--- NOTE | 2021-04-07 08:05 | CT_ITS ---
STUDY: CT ABDOMEN AND PELVIS WITH AND WITHOUT CONTRAST REASON FOR EXAM: Male, 71 years old. HX OF LUNG, COLON CA RADIATION DOSAGE (If Supplied By Facility): CTDIvol = ( 13.09 ) mGy, DLP = ( 2293.19 ) mGycm TECHNIQUE: Transaxial images were obtained from the dome of the diaphragm to the symphysis pubis without oral contrast. ISOVUE 300-100ml Oral contrast was administered. Sagittal and coronal images were reconstructed. Individualized dose optimization techniques were used for this CT. COMPARISON: Comparison is made with prior study dated 06/06/2019. FINDINGS: There is been a slight increase in the left pleural effusion with left basilar atelectasis as compared to prior study. A small amount of fluid is also seen in the left major fissure. The visualized portions of the heart are within normal limits. There is decreased attenuation of the liver consistent with steatosis. Normal gallbladder and extrahepatic biliary system. Normal spleen. Normal pancreas. Normal bilateral adrenal glands. Normal right kidney. Normal left kidney. Normal visualized stomach. Anastomosis seen in the left lower quadrant within the jejunal loops. There is evidence of a focal dilatation at that site with the thickening of the wall of the small bowel loop. The patient is status post right hemicolectomy. There is scattered atherosclerotic calcification of the abdominal aorta, without a demonstrated aneurysm. Normal inferior vena cava. Normal retroperitoneum. Diffuse bladder wall thickening. I suspect a 3.9 cm x 2.7 cm polypoid mass at the base of the bladder. Normal abdominal wall. There are degenerative changes of the visualized lumbar spine. CT/CT Abd/Pelvis W/WO Contrast IMPRESSION: Slight increase in size of the left pleural effusion with left basilar atelectasis. Status post right hemicolectomy. Surgical anastomosis is seen in the left lower quadrant to level of the jejunum with thickened wall. This may represent inflammatory change. Localized intussusception should BE excluded. Bladder wall thickening and polypoid mass in the base of the bladder. Electronically Signed: Deniz Escalante MD at 13:20 EST ,
[2021-04-07 08:50] LABS: EGFR FINGERSTICK > 60.0000 mL/min (>60)
== END 2021-04-07 23:59 | disposition short-term general hospital (02) ==
PROVIDERS: PCP Family Medicine; Referring Provider Nurse Practitioner Family; Visit Provider Nurse Practitioner Family
DX: D01.0 Carcinoma in situ of colon (principal)
CPT/HCPCS: 71270; 74178; Q9967; A4216

== ENCOUNTER → 2024-07-03 | Outpatient (CLI) | payer MEDICARE, OTHER, SELFPAY ==
--- NOTE | 2024-07-03 11:00 | LES_PTH ---
PATIENT: DALJIT VALLADARES LOC: [facility] U#:[id number] AGE/SX: 74/M ROOM: RE07/03/[address]: Dr. Owen Guillen MD : 1950 BED: DIS: 07/03/2024 SPEC #: [id number] RECD: 07/03/24 15:28 STATUS: LELAND REAhmet #: [id number] TAMIKA: 07/03/24 11:[address]: Owen Guillen DEPT: SURGICAL PATHOLOGY RECD BY: Efrain Gonzalez ENTERED: 07/03/24 15:29 SP TYPE: Lesion OTHR DR: Dr. Renny Roldan MD Tissues: A - Skin of arm Procedures: Surgery Specimen Level IV HEADER OPERATION: Excision of right arm - squamous cell carcinoma PRE-OP DIAGNOSIS: Rule out squamous cell carcinoma TISSUE SUBMITTED: A- Right arm lesion *short- superior, long- lateral* MICROSCOPIC DIAGNOSIS A. Skin, right arm, lesion, excision: * Negative for malignancy. * Scar and associated reactive changes consistent with a previous surgical procedure - see note. Note: No previous pathology report from this site was identified in the EMR. MICROSCOPIC DESCRIPTION Slides are reviewed. GROSS DESCRIPTION A. Received in formalin in a container labeled with the patient's name, date of , and right arm lesion is an oriented and ovoid skin excision with a short stitch indicating superior margin and long stitch indicating lateral (short stitch is at approximately 12:00, and a long stitch is at approximately 9:00). There is a previously disrupted and poorly attached strip of skin at the medial/inferior margin (approximately 3-5 o'clock). Ink lewis: Superior -blackInferior-green The specimen is 1.5 cm from superior to inferior (12-6 o'clock), 1.6 cm from medial to lateral (3-9 o'clock; including poorly attached strip of skin), with an excisional depth up to 0.5 cm. The rice-pink and wrinkled skin is notable for a mendoza-red, irregular, and puckered patch.Patch measurement: 0.7 x 0.3 cm. It is situated to the margins as follows:Superior/12:00 margin: 0.5 cmInferior/6:00 margin: 0.6 cmMedial/3:00 margin: 0.3 cm (to disrupted strip of skin)Lateral/9:00 margin: 0.6 cm The specimen is serially sectioned from medial/3:00 to lateral/9:00 into 6 slices to reveal that the patch exhibits rice-pink surfaces that appear confined to the epidermis. The remaining cut surfaces are white-rice and unremarkable. Submitted entirely and sequentially as follows:A1. Slice 1, perpendicular sections of medial/3:00 margin with irregular skin stripA2. Slices 2-5 (1 slice is disrupted due to disrupted strip of skin)A3. Slice 6, perpendicular sections of lateral/9:00 margin [facility] 4-5 CPT:96868
== END | disposition home or self-care (01) ==
LOC: LABSPEC 14:32
PROVIDERS: PCP Family Medicine; Referring Provider Surgery Plastic and Reconstructive Surgery; Visit Provider Surgery Plastic and Reconstructive Surgery
DX: C76.41 Malignant neoplasm of right upper limb (principal)
CPT/HCPCS: 88305

== ENCOUNTER → 2024-07-17 | Outpatient (CLI) | payer MEDICARE, OTHER, SELFPAY ==
--- NOTE | 2024-07-17 08:15 | LES_PTH ---
PATIENT: DALJIT VALLADARES LOC: [facility] U#:[id number] AGE/SX: 74/M ROOM: RE07/17/[address]: Dr. Owen Guillen MD : 1950 BED: DIS: 07/17/2024 SPEC #: [id number] RECD: 07/17/24 14:35 STATUS: LELAND REQ #: [id number] TAMIKA: 07/17/24 08:[address]: Owen Guillen DEPT: SURGICAL PATHOLOGY RECD BY: Efrain Gonzalez ENTERED: 07/17/24 15:38 SP TYPE: Lesion OTHR DR: Dr. Renny Roldan MD Tissues: A - Skin of back, NOS Procedures: Surgery Specimen Level IV HEADER OPERATION: Right upper back lesion PRE-OP DIAGNOSIS: Back lesion TISSUE SUBMITTED:A- Right upper back lesion MICROSCOPIC DIAGNOSIS A. Skin, right upper back, shave biopsy: * Actinic keratosis. MICROSCOPIC DESCRIPTION Slides are reviewed. GROSS DESCRIPTION A. Received in formalin in a container labeled with the patient's name, date of , and right upper back is an unoriented skin shave measuring 0.5 x 0.3 cm with a depth of 0.1 cm. The white-mendoza epidermis is notable for a 0.2 x 0.2 x 0.1 cm white-mendoza, roughened papule situated 0.1 cm from the peripheral margin. The deep margin is inked green, and it is submitted entirely in A1. [facility] 07-17-2024 CPT:32954
== END | disposition home or self-care (01) ==
LOC: LABSPEC 15:00
PROVIDERS: PCP Family Medicine; Referring Provider Surgery Plastic and Reconstructive Surgery; Visit Provider Surgery Plastic and Reconstructive Surgery
DX: Z78.9 Other specified health status (principal)
CPT/HCPCS: 88305